=== PATIENT | female | born 1970 | race Caucasian/White ===

== ENCOUNTER → 2017-11-22 | Outpatient (CLI) | payer OTHER | LOC: FIMAGING 13:01 | PROVIDERS: ATTEND Internal Medicine | DX: Z12.31 Encounter for screening mammogram for malignant neoplasm of breast (principal); Z80.3 Family history of malignant neoplasm of breast ==

== ENCOUNTER → 2018-12-03 | Outpatient (CLI) | payer OTHER | LOC: FIMAGING 11:11 | PROVIDERS: ATTEND Internal Medicine | DX: Z12.31 Encounter for screening mammogram for malignant neoplasm of breast (principal); Z80.3 Family history of malignant neoplasm of breast ==

== ENCOUNTER → 2018-12-10 | Outpatient (CLI) | payer OTHER | LOC: FIMAGING 14:24 | PROVIDERS: ATTEND Internal Medicine | DX: R92.0 Mammographic microcalcification found on diagnostic imaging of breast (principal) ==

== ENCOUNTER → 2018-12-25 | Day surgery (SDC) | payer OTHER ==
[~2018-12-25] MED LIST: BUPIVACAINE 0.5% 30 ML SDV ONE; LIDOCAINE 1% 300 MG/30 ML SDV ONE; THROMBIN (BOVINE) 5,000 UNIT VIAL TP ONE
== END | disposition home or self-care (01) ==
LOC: FIMAGING 07:18
PROVIDERS: ATTEND Internal Medicine
PROC: 0HBT3ZX Excision of Right Breast, Percutaneous Approach, Diagnostic (ICD-10-PCS; principal; 2018-12-25)
DX: D05.11 Intraductal carcinoma in situ of right breast (principal); D05.01 Lobular carcinoma in situ of right breast; Z80.3 Family history of malignant neoplasm of breast

== ENCOUNTER 2019-01-10 07:44 | Observation (INO) | payer OTHER ==
[2019-01-10] MEDS ORDERED: ceFAZolin 2 GM/DEXTROSE 100 ML IV ONE (07:50)
[2019-01-10] MEDS ORDERED: LR 1,000 ML IV ONE (07:51)
[2019-01-10] MEDS ORDERED: GENTAMICIN SULFATE 80 MG/2 ML VIAL ONE (09:35)
[2019-01-10] MEDS ORDERED: METHYLENE BLUE 0.5% 50 MG/10 ML AMP ONE (09:35)
[2019-01-10] MEDS ORDERED: BACITRACIN ZINC 0.5 OZ OINTTUBE TP ONE (09:35)
[2019-01-10] MEDS ORDERED: BUPIVACAINE 0.5% 30 ML SDV ONE (09:35)
[2019-01-10] MEDS ORDERED: THROMBIN (BOVINE) 20,000 UNIT SPRAY TP ONE (09:35)
[2019-01-10] MEDS ORDERED: BACITRACIN 50,000 UNITS/10 ML SYR IRR ONE (09:36)
[2019-01-10] MEDS ORDERED: ceFAZolin 1 GM/5 ML SYR ONE (09:36)
--- NOTE | 2019-01-10 10:46 | PDHPUP ---
History & Physical Update H&P update statement: This history and physical update is based on an assessment of the patient which was completed after admission or registration (within 24 hours), but prior to the surgery/procedure. H&P update: H&P reviewed & patient examined, no change in patient's condition since H&P completed
[2019-01-10] MEDS ORDERED: SCOPOLAMINE HYDROBROMIDE 1 MG/3 DAYS PATCH TD SCH (11:00)
--- NOTE | 2019-01-10 11:05 | PDANEPAE ---
ANE History of Present Illness Breast Ca s/f bilateral mastectomy, SN biopsy, and reconstruction ANE Past Medical History - Cardiovascular History Hx Hypertension: No Hx Arrhythmias: No Hx Chest Pain: No Hx Coronary Artery / Peripheral Vascular Disease: No Hx CHF / Valvular Disease: No Hx Palpitations: No Cardiovascular History Comment: BP RUNS LOW 100/50 AND LOWER - Pulmonary History Hx COPD: No Hx Asthma/Reactive Airway Disease: No Hx Recent Upper Respiratory Infection: No Hx Oxygen in Use at Home: No Hx Sleep Apnea: No Sleep Apnea Screening Result - Last Documented: Negative - Neurologic History Hx Cerebrovascular Accident: No Hx Seizures: No Hx Dementia: No - Endocrine History Hx Diabetes: No Hypothyroid: Yes Endocrine History Comment: Adelina's - Renal History Hx Renal Disorders: No - Liver History Hx Hepatic Disorders: No - Neurological & Psychiatric Hx Hx Neurological and Psychiatric Disorders: No Neurological / Psychiatric History Comment: SITUATIONAL ANXIETY - Cancer History Hx Cancer: No Cancer History Comment: NEW DX BREAST CA - Congenital Disorder History Hx Congenital Disorders: No - GI History Hx Gastrointestinal Disorders: No - Other Health History Other Health History: NONE - Chronic Pain History Chronic Pain: No - Surgical History Prior Surgeries: hernia repair 2014 ANE Review of Systems Review of Systems: - Exercise capacity METS (RN): 6 METS ANE Patient History - Allergies Allergies/Adverse Reactions: midazolam [From Versed] Allergy (Verified 01/08/19 11:56) Other-Enter Comments - Home Medications Home medications: home medication list seen and reviewed Home Medications: Levothyroxine [Synthroid 112 mcg (*)] 112 mcg PO DAILY06 01/03/19 [Last Taken ] - NPO status NPO Status: no food or drink >8 hours NPO Since - Liquids (Date): 01/10/19 NPO Since - Liquids (Time): 04:00 NPO Since - Solids (Date): 01/09/19 NPO Since - Solids (Time): 20:00 - Smoking Hx Smoking Status: Never smoked - Alcohol Use Alcohol Use: Rarely - Family Anes Hx Family Anes Hx: none Family Hx Anesthesia Complications: none ANE Labs/Vital Signs - Vital Signs Blood Pressure: 101/67 Heart Rate: 52 Respiratory Rate: 7 O2 Sat (%): 98 Height: 167.64 cm Weight: 56.699 kg ANE Physical Exam - Airway Neck exam: FROM Mallampati Score: Class 1 Mouth exam: normal dental/mouth exam - Pulmonary Pulmonary: no respiratory distress - Cardiovascular Cardiovascular: regular rate and rhythym - ASA Status ASA Status: I ANE Anesthesia Plan Anesthesia Plan: general endotracheal anesthesia
[2019-01-10] MEDS ORDERED: PROPOFOL/EMULSION 500 MG/50 ML BOTTLE IV ONE (11:44)
[2019-01-10] MEDS ORDERED: REMIFENTANIL HCL 1 MG VIAL ONE (11:44)
[2019-01-10] MEDS ORDERED: fentaNYL 100 MCG/2 ML INJ ONE ×2 (11:45→15:40)
[2019-01-10] MEDS ORDERED: ePHEDrine SULFATE 25 MG/5 ML SYR ONE (11:58)
[2019-01-10] MEDS ORDERED: DEXAMETHASONE 4 MG/ML VIAL ONE ×2 (12:08)
[2019-01-10] MEDS ORDERED: ONDANSETRON 4 MG/2 ML VIAL ONE (12:08)
[2019-01-10] MEDS ORDERED: PROPOFOL 200 MG/20 ML VIAL ONE (14:32)
[2019-01-10] MEDS ORDERED: METOCLOPRAMIDE 10 MG/2 ML VIAL IVP PRN (14:59)
[2019-01-10] MEDS ORDERED: ALBUTEROL 3 ML DEYVIAL IH PRN (14:59)
[2019-01-10] MEDS ORDERED: oxyCODONE IR 5 MG TAB PO PRN ×2 (14:59→16:26)
[2019-01-10] MEDS ORDERED: PHENYLEPHRINE HCL 100 MCG/ML SYR IVP PRN (14:59)
[2019-01-10] MEDS ORDERED: PROMETHAZINE HCL 25 MG/ML INJ IVP PRN ×2 (14:59→16:26)
[2019-01-10] MEDS ORDERED: ONDANSETRON 4 MG/2 ML VIAL IVP PRN ×2 (14:59→16:27)
[2019-01-10] MEDS ORDERED: LR 500 ML IV PRN (14:59)
[2019-01-10] MEDS ORDERED: HYDROCODONE/APAP 5/325 TAB PO PRN (14:59)
[2019-01-10] MEDS ORDERED: LABETALOL HCL 5 MG/ML 20 ML MDV IVP PRN (14:59)
[2019-01-10] MEDS ORDERED: NALOXONE HCL 0.4 MG/ML INJ IVP PRN (14:59)
[2019-01-10] MEDS ORDERED: DEXAMETHASONE 4 MG/ML VIAL IVP PRN (14:59)
[2019-01-10] MEDS: fentaNYL 100 MCG/2 ML INJ IVP PRN ×2 (15:43→15:51)
[2019-01-10] MEDS ORDERED: HYDROmorphONE/DILAUDID 2 MG/ML INJ ONE ×2 (15:53→17:02)
[2019-01-10] MEDS: HYDROmorphONE/DILAUDID 2 MG/ML INJ IVP PRN ×6 (16:00→17:18)
--- NOTE | 2019-01-10 16:06 | GOP ---
[f rep st] OPERATIVE REPORT DATE OF OPERATION: 01/10/2019 SURGEON: Perfecto Chauhan Jr., MD PAINT ROLLER ASSEMBLER: Rob Contreras, ROUTER SETTER by surgeon request (skilled surgical elastic knitter was necessary due to the technical complexity of the case and desire to minimize patient anesthesia time. . ANESTHESIA: Patient had general inhalational anesthetic. ANESTHESIOLOGIST: Dr. Eduard Jo. PREOPERATIVE DIAGNOSIS: Right breast cancer. POSTOPERATIVE DIAGNOSIS: Right breast cancer. PROCEDURE PERFORMED: Immediate bilateral breast reconstruction following nipple sparing mastectomy w ith tissue expanders and human dermal allograft. FINDINGS: ESTIMATED BLOOD LOSS: During reconstruction was 10 cc. INDICATIONS: The patient is a 48-year-old white female with multifocal right breast cancer who elect ed to undergo bilateral nipple sparing mastectomy. She was deemed a good candidate for immediate tis kelly child care leader reconstruction and was taken the operating room in conjunction with Dr. Chris Klein fo r that purpose. DESCRIPTION OF PROCEDURE: After risks and benefits of procedure were explained the patient, formal o perative consent was obtained. She was taken the operating room by Dr. Klein where uncomplicated jim ateral nipple sparing mastectomies were performed. At the completion on the procedure of the mastect omies, new instrumentation, electrocautery and suction tubing were utilized. The pockets were initially irrigated bilaterally with normal saline, followed by triple antibiotic sa line. A submuscular pocket was dissected under direct vision using fiberoptic headlight and electroc autery unit. An Allergan Natrelle Inspira 133+ FX 450 cc tissue child care leader was thoroughly tested, evac uated of air, and filled with 360 cc of air. It was then sutured down to the chest wall bilaterally into the appropriate anatomic position. An AlloDerm 12 x 20 sheet of thick human acellular dermis gr aft was triple rinsed in normal saline, soaked in triple antibiotic saline, and then trim to fit the inferior pole of both breasts, was sutured to the inferior cut edge of the pectoralis major muscle an d down to the chest wall to provide a muscle sling to provide total coverage for the tissue child care leader. Pockets were then irrigated again with triple antibiotic saline and 15 round drains were placed. Ski n edges were evaluated and were felt to be good, viable with good vascularity. Two-layer closure was performed using everting deep dermal 3-0 Monocryl suture and further everted using surgical luis. She had bacitracin and silver impregnated dressings applied. 15 cc of 0.25% plain Marcaine was ins tilled into the drain site and light sterile dressings were applied. TISSUE EXPANDERS: Allergan Natrelle 133+ FX 450 cc devices filled to 360 cc with air bilaterally. DRAINS: Two KELLI drains placed. COMPLICATIONS: No complications. /[id number]/MODL
[2019-01-10] MEDS ORDERED: TEMAZEPAM 15 MG CAP PO PRN (16:26)
[2019-01-10] MEDS ORDERED: ACETAMINOPHEN 325 MG TAB PO PRN (16:26)
[2019-01-10] MEDS ORDERED: ONDANSETRON DISINTEGRATING 4 MG TAB PO PRN (16:27)
[2019-01-10] MEDS ORDERED: D5W 1/2 NS W/ 20 KCl/L 1,000 ML IV SCH (16:30)
[2019-01-10] MEDS ORDERED: LR 1,000 ML IV SCH (16:30)
[2019-01-10] MEDS: KETOROLAC 15 MG/1 ML SDV IVP SCH (18:04)
[2019-01-10] MEDS: HYDROmorphONE/DILAUDID 1 MG/ML INJ IVP PRN ×2 (18:05→20:35)
[2019-01-10] MEDS: HYDROCODONE/APAP 5/325 TAB PO PRN ×2 (18:24→19:03)
[2019-01-10] MEDS: CYCLOBENZAPRINE 10 MG TAB PO SCH (20:35)
[2019-01-10] MEDS: ALPRAZolam 0.25 MG TAB PO SCH (22:14)
[2019-01-11] MEDS: KETOROLAC 15 MG/1 ML SDV IVP SCH ×3 (00:02→12:54)
[2019-01-11] MEDS: HYDROCODONE/APAP 5/325 TAB PO PRN ×2 (03:41→08:59)
[2019-01-11] MEDS ORDERED: LEVOTHYROXINE 112 MCG TAB PO SCH (06:00)
[2019-01-11] MEDS: CYCLOBENZAPRINE 10 MG TAB PO SCH (08:59)
[2019-01-11] MEDS: ALPRAZolam 0.25 MG TAB PO SCH (09:00)
[2019-01-11 11:15] VITALS: BP 102/54
--- NOTE | 2019-01-11 12:29 | ASMTCMCOM ---
CM Note CM Note Notes: Pt is s/p bilateral mastectomies and has two KELLI drains after new dx of breast CA. Anticipate d/c home with her and no CM needs but will follow for any change in needs. D/C plan: home independent Date Signed: 01/11/2019 12:29 PM Electronically Signed By:BETO Mcginnis
--- NOTE | 2019-01-11 13:05 | SOAPPROG ---
SOAP Progress Note Assessment/Plan: Assessment: STATUS POST BILATERAL NIPPLE SPARING MASTECTOMIES WITH RECONSTRUCTION WOUND OKAY/COMFORTABLE/MINIMAL DRAINAGE AFEBRILE/VITAL SIGNS STABLE/URINE OUTPUT GOOD/TOLERATING P.O. WELL MAY WANT TO CONSIDER GOING HOME LATER TODAY/RISKS AND OPTIONS FULLY DISCUSSED PATH PENDING Plan: HOME TODAY OR TOMORROW 01/11/19 13:03 Objective: Vital Signs Temp Pulse Resp BP Pulse Ox 36.8 C 54 L 18 102/54 L 95 01/11/19 11:13 01/11/19 11:13 01/11/19 11:13 01/11/19 11:13 01/11/19 11:13 01/10/19 01/11/19 01/12/19 05:59 05:59 05:59 Intake Total 2264 Output Total 1620 995 Balance 644 -995 ICD10 Worksheet Patient Problems: Problems Problem Status Onset Breast cancer in situ Acute - ICD10 Problem Qualifiers (1) Breast cancer in situ
--- NOTE | 2019-01-11 13:08 | POSTOPPROG ---
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
--- NOTE | 2019-01-11 14:06 | ASDISCHSUM ---
Discharge Information Plan Status:Home with No Needs Medically Cleared to Leave:01/10/2019 Discharge Date:01/10/2019 CM D/C Disposition:Home, Routine, Self-Care ADT D/C Disposition: Projected Discharge Date:01/10/2019 Transportation at D/C:Family Discharge Delay Reason: Follow-Up Date:01/10/2019 Discharge Slot: Final Diagnosis: Placement Information Patient Contact Information Contact Name:KEV Relationship: Address:[address] Phone: City:[address] [facility] Phone: State/Zip Code:[place] [address] Email: Financial Information Financial Class:HMO and PPO Plans Primary Plan Desc:[employer]/POS PPO Primary Plan Number:[id number] Secondary Plan Desc: Secondary Plan Number: Assessment Information LACE LACE Length of stay for Answers: Less than 1 day current admission Acuity / Level of Answers: No Care: Did the patient have an inpatient admission? Date Signed: 01/11/2019 02:04 PM Electronically Signed By:BETO Mcginnis [facility] CM Progress Note CM Note CM Note Notes: Pt is s/p bilateral mastectomies and has two KELLI drains after new dx of breast CA. Anticipate d/c home with her and no CM needs but will follow for any change in needs. D/C plan: home independent Date Signed: 01/11/2019 12:29 PM Electronically Signed By:BETO Mcginnis Case Management Discharge Plan Note Case Management Discharge Discharge Order Complete? Answers: Yes Patient to Obtain Answers: via Family Medications Transportation Arranged Answers: Family/Friends Discharge Comments Notes: Pt is s/p bilateral mastectomies and is discharging home today with no CM needs. Date Signed: 01/11/2019 02:05 PM Electronically Signed By:BETO Mcginnis Intervention Information
--- NOTE | 2019-01-13 02:43 | GOP ---
[f rep st] OPERATIVE REPORT DATE OF OPERATION: 01/10/2019 SURGEON: Sarbjit Klein MD POWER GENERATING PLANT OPERATOR: Molly Méndez NP. ANESTHESIOLOGIST: Eduard Jo MD. 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 PROCEDURE PERFORMED: Nipple-sparing, total skin-sparing, bilateral mastectomies with bilateral senti evelin node biopsies. FINDINGS: Patient was found to have negative sentinel nodes and negative subareolar biopsies for inv asive cancer. Final path is pending. ESTIMATED BLOOD LOSS: Less than 200 cc. DESCRIPTION OF PROCEDURE: Patient was taken to the operating room where she received satisfactory ge neral endotracheal anesthesia by Dr. Jo. She was placed in the supine position with both arms out stretched on an arm board and prepped and draped in the usual sterile fashion. Incisions were made i nferiorly in the inframammary crease and extended somewhat laterally. Total skin-sparing dissection then ensued, lifting the skin away from the breast tissue from the inferior aspect all the way up to the clavicle and to the sternum medially. Dissection extended carefully underneath the areola, and s ubareolar tissue was sent out for biopsy, on the right side. Complete mastectomy was performed all t he way up to the axilla. Breast tissue was elevated up off the pectoralis muscle, and the fascia was taken along with the breast tissue. Hemostasis was carefully obtained. Both sides were handled in a similar manner except for subareolar biopsy on the right; and on both sides, the axilla was entered with a gamma probe, and sentinel nodes were taken out and sent for frozen section which returned as negative on both sides. Hemostasis was carefully obtained. The wounds were irrigated; and at that p oint, the flaps all appeared to be completely viable; and the procedure was turned over to Dr. Sb wright for immediate breast reconstruction. She tolerated the procedure well. COMPLICATIONS: There were no complications. /[id number]/MODL
[2019-01-13] MEDS ORDERED: PATCH REMOVAL 1 EA PATCH TD SCH (10:53)
--- NOTE | 2019-01-14 16:36 | POSTANESTH ---
Post Anesthetic Evaluation Cardiovascular Status: Normal, Stable Respiratory Status: Normal, Stable Level of Consciousness/Mental Status: Can Participate in Eval Pain Control: Adequate, Prn Tx Ordered Nausea/Vomiting Control: Adequate, Prn Tx Ordered Complications Possibly Related to Anesthesia: None Noted
--- NOTE | 2019-01-15 15:21 | GDS ---
[f rep st] DISCHARGE SUMMARY DISCHARGE DIAGNOSIS: Breast cancer in situ. CONSULTATIONS: None. SPECIAL TESTS: None. PROCEDURES: Nipple-sparing, total skin-sparing, bilateral mastectomies with bilateral sentinel node biopsies by Drs. Klein and Gissel. Intraoperative findings: Patient was found to have negative sentinel nodes and negative subareolar biopsies for invasive cancer. HOSPITAL COURSE: This is a 48-year-old female with a recent diagnosis of right ductal carcinoma in situ and bilateral lobular carcinoma in situ, who was admitted to the hospital to undergo planned bilateral mastectomies with reconstruction. The procedure went well and there were no complications. The patient's pain was initially controlled with IV pain medications. Then she was subsequently transitioned to oral pain medications. She was ultimately discharged the day following surgery. At the time of discharge, the patient was afebrile and her pain was controlled. She was discharged home with prescriptions for [place] and antibiotics. She was advised to follow up with both Dr. Klein and Dr. Chauhan the following week. She was discharged with [address] Education was provided prior to discharge for emptying and recording the amount of drainage. The patient was advised to call with fever, chills, or worsening pain. /[id number]/MODL MTDD
== END 2019-01-11 14:17 | disposition home or self-care (01) ==
LOC: F3N 07:44 → F1N 17:38
PROVIDERS: ADMIT Surgery; ATTEND Surgery
PROC: 07B60ZX Excision of Left Axillary Lymphatic, Open Approach, Diagnostic (ICD-10-PCS; principal; 2019-01-10 11:00)
PROC: 0HTV0ZZ Resection of Bilateral Breast, Open Approach (ICD-10-PCS; principal; 2019-01-10 11:00)
PROC: 07B50ZX Excision of Right Axillary Lymphatic, Open Approach, Diagnostic (ICD-10-PCS; principal; 2019-01-10 11:00)
PROC: 0HRV0JZ Replacement of Bilateral Breast with Synthetic Substitute, Open Approach (ICD-10-PCS; 2019-01-10 11:00)
PROC: 3E0W3KZ Introduction of Other Diagnostic Substance into Lymphatics, Percutaneous Approach (ICD-10-PCS; 2019-01-10 11:00)
DX: D05.11 Intraductal carcinoma in situ of right breast (principal); D05.01 Lobular carcinoma in situ of right breast; Z80.3 Family history of malignant neoplasm of breast; E06.3 Autoimmune thyroiditis
CPT/HCPCS: 19303; 19340; 38500; 78195; A9520; G0378; J0690; J1100; J1170; J1580; J1885; J2405; J2704; J3010; Q9968